=== PATIENT | male | born 2000 | race Caucasian/White ===

== ENCOUNTER 2024-09-29 17:49 | Emergency (ER) | payer OTHER, SELFPAY ==
[2024-09-29 17:58] VITALS: BP 138/83; PULSE 85; RESP 18; TEMP 36.8; O2SAT 98; BMI 20.9
--- NOTE | 2024-09-29 19:49 | ED_ITS ---
HPI - Skin/Abscess/Foreign Bdy General: Chief complaint: Skin/Abscess/Foreign Body Stated complaint: Swelled spot on L arm Time Seen by Provider: 09/29/24 19:25 History of Present Illness: Patient noted on his left extensor surface of his mid distal arm area of swelling with streaking. This occurred today. He has a history of MRSA. Denies messing with this area. He has not had anything come out of this area. No fevers. Associated symptoms: Deny chills, fever(s), nausea or vomiting Related Data Previous Rx's ?Medication ?Instructions ?Recorded doxycycline hyclate 100 mg capsule 100 mg PO BID 10 da ys #20 caps 09/29/24 Allergies Allergy/AdvReac Type Severity Reaction Status Date / Time Iodinated Contrast Media Allergy Unknown Verified 09/29/24 18:01 shellfish derived Allergy Unknown Verified 09/29/24 18:01 Review of Systems General: Reports: 10 or more systems reviewed and unremarkable except in HPI and below Const: Denies: fever(s) or chills Eyes: Denies: change in vision or blurry vision ENMT: Denies: throat pain or mouth pain Card: Denies: chest pain or palpitations Resp: Denies: dyspnea or non-productive cough GI: Denies: abdominal pain, nausea or vomiting : Denies: flank pain or difficulty urinating Musc: Denies: neck pain, back pain or extremity pain Skin/Breast: Reports: sores; Denies: rash or pruritus Neuro: Denies: headache(s) or numbness in extremities Psych: Denies: anxiety or depression Physical Exam Const: COMMON NORMALS: no acute distress, average body habitus, patient oriented x3, no limitations and healthy appearing GENERAL APPEARANCE: cooperative and comfortable HENMT: COMMON NORMALS: normocephalic, atraumatic and hearing grossly normal bilaterally HEAD & SCALP: normocephalic and atraumatic FACE & SINUS: normal facial exam Neck/C-Spine: COMMON NORMALS: full ROM, no lymphadenopathy and supple Lymph: LYMPHATIC: no lymphadenopathy noted Chest: COMMONS NORMALS: normal inspection of the chest and normal palpation of entire chest wall Resp: COMMON NORMALS: normal respiratory effort and clear to auscultation bilaterally AUSCULTATION: clear to auscultation bilaterally Cardio: COMMON NORMALS: regular rate and regular rhythm RATE: regular rate RHYTHM: regular rhythm GI: COMMON NORMALS: Normal to inspection, nondistended, normoactive bowel sounds present : COMMON NORMALS: Yes no CVA tenderness BLADDER/KIDNEY EXAM: Yes no CVA tenderness Back/Pelvis: COMMON NORMALS: no CVA tenderness Extremity: COMMON NORMALS: normal to inspection and full ROM GENERAL: Yes normal exam except as noted Neuro: COMMON NORMALS: patient oriented x3 Skin: GENERAL SKIN EXAM: fluctuance, induration and striae pink (left distal mid extensor surface) Procedures Abscess I/D Site: upper extremity Side (if applicable): left Technique: other (18 gauge) Amount of fluid expressed (mL): 1 Irrigation: No Packing used?: none Complications: pain Course Vital Signs: Vital signs: Vital Signs Temperature 98.2 F 09/29/24 17:58 Pulse Rate 85 09/29/24 17:58 Respiratory Rate 18 09/29/24 17:58 Blood Pressure 138/83 09/29/24 17:58 Pulse Oximetry 98 09/29/24 17:58 Oxygen Delivery Me thod Room Air 09/29/24 17:58 MDM - Skin/Abscess/Foreign Bdy Medicial Decision Making Patient is a 23-year-old gentleman that awoke with a area to his left extensor surface this morning and complained of the striate is that are off both sides. Attempted to excise this area, it was a small area with not much induration, therefore utilized an 18-gauge needle, however minimal amount of extraction was obtained. Culture was still sent to the lab. Patient tolerated without issues or sedation. All radiology interpretation(s) finalized by discharge Discharge Plan Discharge Patient Disposition: Home Clinical Impression: Abscess of skin or subcutaneous tissue Condition: Stable Prescriptions: New doxycycline hyclate 100 mg capsule 100 mg PO BID 10 Days Qty: 20 0RF Discharge Orders: Discharge ED (Routine); Ordered 09/29/24 Ordered By: Justine Lopez Discharge Diet: Usual diet Discharge Activity: Resume usual activity Patient Instructions: Abscess (ED), Patient Portal & [facility] Instructions Activity Restrictions/Additional Instructions: Wash this area daily. Apply heat to make any additional concerns come to the surface. Return to ED for worsening pain, worsening redness, temperature greater 100.4 ?F Print Language: Kazakh Coding Level of Care Code ED Warehouse Distribution Associate for Hanna Zamora
--- OUTSIDE RECORDS SUMMARY | 2024-09-30 07:29 | XMS_ITS | Patient Health Record ---
Author Organization [employer] [facility] Address [address] [place] [id number] Support Name Relationship Address Phone Rodney Natarajan Guarantor Unknown Allergies Allergen (clinical drug ingredient) Drug/Non Drug Allergy documented on EMR Reaction Allergy Type Onset Date Status Seafood Seafood (uncoded) Unknown Allergy Ac tive Shellfish (FN) shellfish (uncoded) Unknown Allergy Active Iodine Unknown Drug Allergy Active Reason For Referral No Information Medications Medication SIG (Take, Route, Frequency, Duration) Notes Start Date End Date Status Citalopram Hydrobromide 20 MG 1 tablet Orally Once a day; Duration: 30 day(s) Not-Taking Mupirocin 2 % 1 application apply to bilat nasal passages Twice a day 09/03/2021 Active Bactrim DS 800-160 MG 1 tablet Orally Tw ice a day 08/26/2021 Active Social History Tobacco Use: Social History Observation Description Date Details (start date - stop date) Current some da y smoker NA - NA Smoking Question Answer Notes Smoking Status: current some day smoker Occas. s moke and dip Plan Of Treatment Pending Test Test Name Order Date Urinalysis, Routine 05/19/2019 Urinalysis, Routine 05/27/2021 Rocephin 1 gram 08/26/2021 Vision Screening 05/19/2019 Vision Screening 05/27/2021 Hearing Screening 05/19/2019 Hearing Screening 05/27/2021 BTE 05/27/2021 BTE 05/19/2019 Toradol 60mg 08/26/2021 XRAY 08/26/2021 Insurance Providers Payer Name Payer Address Payer Phone Subscriber Number Group Number Insured Name Patient Relationship to Insured Coverage Start Date Coverage End Date Baljeet Napier PRE-EMP/RTW GLORY Jacome [id number] Rodney Natarajan Self - patient is the insured [facility] [employer] [email or web address] [id number] [phone] Rodney Natarajan Self - patient is the insured [email or web address]@ [email or web address] [email or web address] [id number] [phone] Rodney Natarajan Self - patient is the insured Medical (General) History Medical History History ICD Code Left cavazos stress fx, jumped off slide-at 10 yrs old Nose fx, basketball-7th grade Right acl and meniscus tear, basketball- 2012 Seasonal allergies MRSA 2021 Surgical History Surgery Date(Month/Year) Right acl and meniscus repair 2012 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
== END 2024-09-29 20:37 | disposition home or self-care (01) ==
PROVIDERS: Emergency Provider Physician Assistant
DX: L02.414 Cutaneous abscess of left upper limb (principal)
CPT/HCPCS: 10060; 87070; 87077; 87186; 99283; J9999